=== PATIENT | male | born 1995 ===

== ENCOUNTER 2017-01-10 14:05 | Emergency (ER) | payer SELFPAY ==
[2017-01-10 14:23] VITALS: TEMP 97.9
--- NOTE | 2017-01-10 16:05 | C.PDOC ---
History Of Present Illness 21 yr old male presents to the ER stating he fell while skateboarding yesterday. Reports of laceration to the right anterior hip. Denies abdominal pain, back pain, leg pain, weakness or numbness. Time Seen by Provider: 01/10/17 14:28 Chief Complaint (Nursing): Abnormal Skin Integrity History Per: Patient History/Exam Limitations: no limitations Onset/Duration Of Symptoms: Days (1) Current Symptoms Are (Timing): Still Present Past Medical History Reviewed: Historical Data, Nursing Documentation, Vital Signs Vital Signs: Last Vital Signs Temp 97.9 F 01/10/17 18:21 Pulse 76 01/10/17 18:21 Resp 17 01/10/17 18:21 BP 114/75 01/10/17 18:21 Pulse Ox 98 01/10/17 18:21 Family History: States: No Known Family Hx - Social History Hx Alcohol Use: No Hx Substance Use: No - Immunization History Hx Tetanus Toxoid Vaccination: No Hx Influenza Vaccination: No Hx Pneumococcal Vaccination: No Review Of Systems Except As Marked, All Systems Reviewed And Found Negative. Gastrointestinal: Negative for: Abdominal Pain Musculoskeletal: Negative for: Back Pain, Leg Pain Skin: Positive for: Other ((+) Laceration to the right anterior hip) Neurological: Negative for: Weakness, Numbness Physical Exam - Physical Exam Appears: Non-toxic, No Acute Distress Skin: Warm, Dry, No Rash, Other ((+) 3cm laceration over the superior right hip. Subcutaneous tissue seen.) Head: Atraumatic, Normacephalic Cardiovascular: Rhythm Regular, No Murmur Respiratory: Normal Breath Sounds, No Rales, No Rhonchi, No Stridor, No Wheezing Extremity: Normal ROM, No Swelling Neurological/Psych: Oriented x3, Normal Speech, Normal Motor ED Course And Treatment O2 Sat by Pulse Oximetry: 99 (RA) Pulse Ox Interpretation: Normal Laceration - Laceration Repair Right Hip Wound Length (In cm): 3 Description Of Wound: Linear Wound Cleansed With: Sterile Saline Anesthesia: Lidocaine 1% Wound Examination: Irrigated With Saline, No FB With Wound Exploration, No Tendon Injury With Wound Exploration Wound Debridement/Revision: Wound Debrided Wound Closure: Suture (4) Suture Technique And Material Used: Interrupted, Nylon (3-0) Wound Complexity: Simple Medical Decision Making Medical Decision Making: PLAN: * Bacitracin TOP * Motrin PO * Tetanus IM L at R hip area, closed with 4 sutures defer prophylactic abx for clean wound < 24 hrs well tolerated. Disposition Doctor Will See Patient In The: Office Counseled Patient/Family Regarding: Studies Performed, Diagnosis - Disposition Referrals: [facility] [Outside] [facility] [Outside] Disposition: HOME/ ROUTINE Disposition Time: 18:03 Condition: GOOD Additional Instructions: ice packs to the area 1/2 hour per hour for local pain/swelling continue to clean and apply Bacitracin ointment daily Return in 2 days for wound check Return in 7 days to have sutures removed. Tdap 0.5 mg given Instructions: Care For Your Stitches (ED), Laceration (ED) Forms: [employer] (Slovenian) - Clinical Impression Clinical Impression: Laceration - Scribe Statement The provider has reviewed the documentation as recorded by the Scribe Anne Alberto Provider Attestation: All medical record entries made by the Scribe were at my direction and personally dictated by me. I have reviewed the chart and agree that the record accurately reflects my personal performance of the history, physical exam, medical decision making, and the department course for this patient. I have also personally directed, reviewed, and agree with the discharge instructions and disposition.
[2017-01-10] MEDS ORDERED: Lidocaine 1% Inj (20ml) INFIL STA (16:40)
[2017-01-10] MEDS ORDERED: Lidocaine 1% Inj (20ml) ONE (16:54)
[2017-01-10] MEDS ORDERED: Bacitracin Ointment 30 GM TUBE TOP STA (18:09)
[2017-01-10] MEDS ORDERED: Bacitracin 500 Units/gm Oint Foilpak UD ONE (18:10)
[2017-01-10 18:23] VITALS: BP 114/75; PULSE 76; RESP 17
[2017-01-10 18:56] VITALS: O2SAT 99
== END 2017-01-10 18:23 | disposition home or self-care (01) ==
LOC: C.ER 14:05
DX: S71.011A Laceration without foreign body, right hip, initial encounter (principal); V00.131A Fall from skateboard, initial encounter; Y93.51 Activity, roller skating (inline) and skateboarding